=== PATIENT | male | born 1960 | race Caucasian/White ===

== ENCOUNTER → 2023-10-05 00:49 | Outpatient (CLI) | payer MEDICAID, SELFPAY ==
--- NOTE | 2023-10-05 | DI.NM_ITS ---
APPROVED REPORT Exam: Pharmacologic Patient Location: Out-Patient Room/Bed: Stress Nurse: Tucker Chisholm RN and María Cabrera RN Ordering Provider:EBNNIE ABRAMS, Contact Number: [phone] BMI: 37.94 Baseline Rhythm: Sinus Rhythm. Indications: Hyperlipidemia; Atherosclerotic Heart Disease. Medical History Medical History: Dyspnea on Exertion; Hyperlipidemia; Hypertension; CAD; ME in 1998; COPD; Dilated Ao rtic Root; Diabetes Mellitus Type Two; Obstructive Sleep Apnea. Cardiac Medications: Aspirin; Bupropion; Gabapentin; Duloxetine; Losartan; Metoprolol Succinate; Nitr oglycerin; Rosuvastatin; Ozempic. Allergies: Lisinopril. Cardiac Risk Factors: Family History; Hyperlipidemia; Hypertension; Diabetes Mellitus Type Two; COPD; Former Smoker; Obesity. Previous Cardiac Procedures: Two stents. Pretest Chest Pain Characteristics: None. Exercise History: Indeterminate. Physical Disabilities: Right knee pain; Osteoarthritis. Lung Sounds: Clear bilaterally throughout, anterior and posterior. Heart Sounds: S1 and S2 auscultated. Stress Test Details Test: Exercise stress converted to pharmacologic stress due to failure to obtain a diagnostic stress test. Reason for pharmacologic stress test: physical limitation; arthritis. Nuclear Acquisition: Rest Tc-99m/Stress Tc-99m 1 day Rest Isotope: Tc-99m Sestamibi. Dose: 11.0 Date: 10/05/2023 Injection Time: 1100 Stress Isotope: Tc-99m Sestamibi. Dose: 36.0 Date: 10/05/2023 Injection Time: 1302 HR Resting HR Supine: 63 bpm Max Heart Rate (APMHR): 159 bpm Resting HR Standin bpm Target HR (85% APMHR): 135 bpm Max HR Achieved: 98 bpm % of APMHR: 62 Recovery HR: 81 bpm BP Resting BP Supine: 118/72 mmHg Resting BP Standin/86 mmHg Max BP: 138/82 mmHg Recovery BP: 138/82 mmHg ECG Resting ECG: Sinus Rhythm. Ectopy: None. Stress ECG: Sinus Rhythm. ST Change: Nondiagnostic low heart rate. Arrhythmia: Rare PAC; Occasional PVC's. Recovery ECG: Sinus Rhythm. Recovery ST Change: Nondiagnostic low heart rate. Recovery Arrhythmia: None. Clinical Stress Symptoms: Dyspnea. Angina Score: None Rate Pressure Product: [id number] Stress ECG Conclusion 1. Resting electrocardiogram showed sinus rhythm, minor ST abnormalities 2. Patient underwent testing using pharmacologic stress with regadenoson 3. Peak heart rate achieved was 62% of maximal predicted for age 4. Electrocardiographic portion of the test was nondiagnostic 5. See MPI report Stress Test Summary STAGE Time (mins) Speed (mph) Grade (%) HR BP SpO2 SYMPTOMS METS Supine 63 118/72 98 Standing 73 132/86 98 1 min post Lexiscan injection Pt. complaining of mild shortness of breath. 3 min post Lexiscan injection 69 132/84 97 Pt. complaining of mild to minimal shortness of br eath. 6 min post Lexiscan injection 94 132/78 98 Pt. states that all shortness of breath has resolv ed. 9 min post Lexiscan injection 81 138/82 98 Stress test was transitioned from a walking lexiscan to a laying lexiscan due to nursing staff inabil ity to visualize a readable rhythm strip while pt. was ambulating on the treadmill. Pt. complained of mild shortness of breath during the lexiscan injection, but stated that the mild shortness of breath had resolved by the time they were leaving the Stress Lab. Pt. was conversing pleasantly with nursin g staff upon leaving the Stress Lab. Pt. left ambulatory in no apparent distress. MPI Conclusion Myocardial perfusion is abnormal. There is no ischemia. 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 Radiologist Interpretation by: Flor Gardner MD Interpretation Date/Time: 10/05/2023 15:33:07
[2023-10-05] MEDS: Regadenoson 0.4 MG/5 ML SYR IVP (13:01)
== END ==
PROVIDERS: PCP Family Medicine; Visit Provider Internal Medicine
DX: I25.10 Atherosclerotic heart disease of native coronary artery without angina pectoris (principal); E78.5 Hyperlipidemia, unspecified
CPT/HCPCS: 78452; 93017; J2785